=== PATIENT | male | born 1985 | race Caucasian/White ===

== ENCOUNTER 2021-01-24 12:08 | Emergency (ER) | payer SELFPAY ==
[~2021-01-24] VITALS: Ht 165.1 cm; Wt 86.2 kg
[2021-01-24 12:57] VITALS: BP 133/68
--- NOTE | 2021-01-24 13:11 | NUR ---
THE PATIENT BIBS FOR C/O LEFT EAR PAIN X 5 DAYS,EAR DROPS NOT HELPING. RATES RACHACHE 09/30. DENIES CHANGE IN HEARING. WILL CONTINUE TO MONITOR THE PATIENT.
[2021-01-24] MEDS ORDERED: CARB15DR12 LEFT EAR (14:21)
[2021-01-24] MEDS ORDERED: CIPR7.5D9 LEFT EAR (14:21)
== END 2021-01-24 14:32 | disposition home or self-care (01) ==
LOC: ER 12:12
DX: H66.92 Otitis media, unspecified, left ear (principal); H61.22 Impacted cerumen, left ear